=== PATIENT | male | born 1960 | race Caucasian/White ===

== ENCOUNTER → 2022-03-12 09:13 | Outpatient (CLI) | payer SELFPAY | PROVIDERS: Visit Provider Nurse Practitioner | DX: Z20.822 Contact with and (suspected) exposure to COVID-19 (principal) ==

== ENCOUNTER → 2022-03-18 17:31 | Outpatient (CLI) | payer SELFPAY | DX: Z20.822 Contact with and (suspected) exposure to COVID-19 (principal) ==

== ENCOUNTER → 2022-04-04 13:14 | Outpatient (CLI) | payer OTHER, SELFPAY ==
[2022-04-04 16:40] LABS: Influenza A, PCR Not Detected (NotDetected); Influenza B, PCR Not Detected (NotDetected)
[2022-04-04 18:48] LABS: Coronavirus 19, PCR Detected (NotDetected)
== END ==
PROVIDERS: PCP Family Medicine; Visit Provider Family Medicine
DX: U07.1 COVID-19 (principal)
CPT/HCPCS: C9803; U0003; U0005

== ENCOUNTER 2023-05-29 21:20 | Emergency (ER) | payer OTHER, SELFPAY ==
[2023-05-29] VITALS (12 sets, daily range): BP systolic 128–184; BP diastolic 61–92; PULSE 49–78; RESP 8–17; TEMP 36.4–36.8; O2SAT 98–100; BMI 25.0
--- NOTE | 2023-05-29 21:24 | CT_ITS ---
PROCEDURE INFORMATION: Exam: CT Head Without Contrast Exam date and time: 05/29/2023 9:52 PM Age: 63 years old Clinical indication: Pain; Headache; Additional info: Sudden onset headache TECHNIQUE: Imaging protocol: Computed tomography of the head without contrast. Radiation optimization: All CT scans at this facility use at least one of these dose optimization techniques: automated exposure control; mA and/or kV adjustment per patient size (includes targeted exams where dose is matched to clinical indication); or iterative reconstruction. REPORTING DATA: Count of CT and Cardiac NM exams in prior 12 months: This patient has received 0 known CTs and 0 known cardiac nuclear medicine studies in the 12 months prior to the current study. COMPARISON: No relevant prior studies available. FINDINGS: Brain: Abnormal hyperattenuating fluid within the basilar cisterns extends below the foramen magnum. Cerebral ventricles: No ventriculomegaly. Paranasal sinuses: Visualized sinuses are unremarkable. No fluid levels. Mastoid air cells: Visualized mastoid air cells are well aerated. Bones/joints: Unremarkable. No acute fracture. Soft tissues: Unremarkable. IMPRESSION: Abnormal hyperattenuating fluid within the basilar cisterns extends below the foramen magnum. THIS REPORT CONTAINS FINDINGS THAT MAY BE CRITICAL TO PATIENT CARE. The findings were verbally communicated via telephone conference with Stanislav Cheatham at 10:16 PM EDT on 05/29/2023. The findings were acknowledged and understood.
--- NOTE | 2023-05-29 21:35 | ECG_ITS ---
APPROVED REPORT Exam: Resting ECG HR:55 bpm ECG Measurements Heart Rate 55 AXES MS 245 P 75 QRSd 117 QRS 45 QT 463 T 65 QTc 453 Conclusion SINUS BRADYCARDIA WITH FIRST DEGREE AV BLOCK WITH OCCASIONAL SUPRAVENTRICULAR PREMATURE COMPLEXES INCOMPLETE RIGHT BUNDLE BRANCH BLOCK [90+ ms QRS DURATION, TERMINAL R IN V1/V2, 40+ ms S IN I/aVL/V4/V5/V6] ABNORMAL ECG UNCONFIRMED REPORT Electronically signed by : Wojciech Wadsworth MD 05/30/2023 19:24:41
[2023-05-29 21:43] LABS: Basophils % 0.4 % (0.1-2.0); Eosinophils # 0.1 K/mm3 (0.0-0.4); Eosinophils % 1.5 % (0.1-12.0); Hematocrit 42.6 % (42.0-52.0); Hemoglobin 14.6 g/dL (14.1-18.0); Lymphocytes # 2.1 K/mm3 (0.7-4.5); Lymphocytes % 26.1 % (10-50); Mean Corpuscular HGB Conc 34.2 g/dL (31.8-35.4); Mean Corpuscular Volume 90.6 fl (80-94); Mean Platelet Volume 7.7 fl (7.4-10.4); Monocytes # 0.4 K/mm3 (0.1-1.0); Monocytes % 5.3 % (1.7-9.3); Neutrophils # 5.3 K/mm3 (1.8-7.8); Neutrophils % 66.7 % (37.0-80.0); Platelet Count 237 K/mm3 (142-424); Red Blood Count 4.71 M/mm3 (4.60-6.20); Red Cell Distribution Width 13.7 % (11.5-17.5)
[2023-05-29 21:56] LABS: Alanine Aminotransferase 39 U/L (12-78); Albumin/Globulin Ratio 1.6 (1.1-1.8); Alkaline Phosphatase 55 U/L (38-126); Anion Gap 15.4 mEq/L (5-15); Aspartate Amino Transferase 52 U/L (17-59); Bilirubin,Total 0.4 mg/dl (0.2-1.3); Blood Urea Nitrogen 24 mg/dl (9-20); Calcium 9.4 mg/dl (8.4-10.2); Carbon Dioxide 28 mmol/L (22.0-30.0); Chloride 100 mmol/L (98-107); Creatinine Clearance Estimated 81 mL/min (50-200); Estimated Glomerular Filt Rate 67 ml/min (>60); GFR (African American) 82 ML/MIN (>60); Globulin 3.1 g/dL (1.3-3.2); Glucose 174 mg/dl (74-100); Potassium 3.4 mmoL/L (3.5-5.1); Sodium 140 mmol/L (136-145); Total Protein,Serum 8.1 g/dl (6.3-8.2)
--- NOTE | 2023-05-29 22:06 | CT_ITS ---
PROCEDURE INFORMATION: Exam: CTA Neck With Contrast Exam date and time: 05/29/2023 10:17 PM Age: 63 years old Clinical indication: Abnormal findings; Abnormal CT of the head; Additional info: Sah R/O aneurysm TECHNIQUE: Imaging protocol: Computed tomographic angiography of the neck with contrast. 3D rendering (Not supervised by radiologist): MIP and/or 3D reconstructed images were created by the technologist. Radiation optimization: All CT scans at this facility use at least one of these dose optimization techniques: automated exposure control; mA and/or kV adjustment per patient size (includes targeted exams where dose is matched to clinical indication); or iterative reconstruction. Contrast material: ISOVUE; Contrast volume: 100 ml; Contrast route: INTRAVENOUS (IV); REPORTING DATA: Count of CT and Cardiac NM exams in prior 12 months: This patient has received 0 known CTs and 0 known cardiac nuclear medicine studies in the 12 months prior to the current study. COMPARISON: CT HEAD/BRAIN WO CON 05/29/2023 9:52 PM FINDINGS: Right common carotid artery: No stenosis. No dissection or occlusion. Right internal carotid artery: No stenosis of the extracranial segment. Minimal atherosclerotic disease of the carotid bulb. No dissection or occlusion. Right external carotid artery: No occlusion or stenosis of the origin. Left common carotid artery: No stenosis. No dissection or occlusion. Please note a short-segment of the proximal left common carotid artery can not be visualized secondary to streak artifact from contrast in the left subclavian vein. Left internal carotid artery: No significant stenosis of the extracranial segment. Minimal atherosclerotic disease of the carotid bulb. No dissection or occlusion. Left external carotid artery: No occlusion or stenosis of the origin. Right vertebral artery: No stenosis. No dissection or occlusion. Left vertebral artery: No stenosis. No dissection or occlusion. Soft tissues: Normal. No significant soft tissue swelling. Bones/joints: No acute fracture. IMPRESSION: No stenosis or occlusion in the neck. REFERENCES: NASCET CRITERIA. The degree of stenosis in the cervical segment of the internal carotid artery is based on NASCET criteria. Normal is no stenosis. Mild is less than 50% stenosis. Moderate is 50-69% stenosis. Severe is 70% to 99% stenosis. Total occlusion is no detectable patent lumen.
--- NOTE | 2023-05-29 22:06 | CT_ITS ---
PROCEDURE INFORMATION: Exam: CTA Head With Contrast, Arteriography Exam date and time: 05/29/2023 10:17 PM Age: 63 years old Clinical indication: Abnormal findings; Abnormal CT of the head; Additional info: Sah R/O neurysn TECHNIQUE: Imaging protocol: Computed tomographic angiography of the head with contrast. Exam focused on the arteries. 3D rendering (Not supervised by radiologist): MIP and/or 3D reconstructed images were created by the technologist. Radiation optimization: All CT scans at this facility use at least one of these dose optimization techniques: automated exposure control; mA and/or kV adjustment per patient size (includes targeted exams where dose is matched to clinical indication); or iterative reconstruction. Contrast material: ISOVUE; Contrast volume: 100 ml; Contrast route: INTRAVENOUS (IV); REPORTING DATA: Count of CT and Cardiac NM exams in prior 12 months: This patient has received 0 known CTs and 0 known cardiac nuclear medicine studies in the 12 months prior to the current study. COMPARISON: CT HEAD/BRAIN WO CON 05/29/2023 9:52 PM FINDINGS: ANTERIOR CIRCULATION: Right internal carotid artery: Intracranial segment is patent with no significant stenosis. No aneurysm. Right middle cerebral artery: No occlusion or significant stenosis. No aneurysm. Right anterior cerebral artery: No occlusion or significant stenosis. No aneurysm. Left internal carotid artery: Intracranial segment is patent with no significant stenosis. No aneurysm. Left middle cerebral artery: No occlusion or significant stenosis. No aneurysm. Left anterior cerebral artery: No occlusion or significant stenosis. No aneurysm. POSTERIOR CIRCULATION: Right vertebral artery: No occlusion or significant stenosis. No aneurysm. Left vertebral artery: No occlusion or significant stenosis. No aneurysm. Basilar artery: No occlusion or significant stenosis. No aneurysm. Right posterior cerebral artery: No occlusion or significant stenosis. No aneurysm. Left posterior cerebral artery: No occlusion or significant stenosis. No aneurysm. Brain: Redemonstration of extensive subarachnoid hemorrhage within the basilar cisterns. Cerebral ventricles: Stable appearance of the ventricles Bones/joints: Unremarkable. No acute fracture. Soft tissues: Unremarkable. IMPRESSION: 1. No large vessel stenosis or occlusion. 2. Redemonstration of subarachnoid hemorrhage filling the basilar cisterns. No intracranial aneurysm.
--- NOTE | 2023-05-29 22:11 | PC.NURSE ---
Darrion BP 158/92 also provided 2 warm blanets, patient was being taken to CTA
--- NOTE | 2023-05-29 22:15 | PC.NURSE ---
contacted [facility] for pt transfer
--- NOTE | 2023-05-29 22:22 | PC.NURSE ---
received notification of abn head ct result. discussed with patient who prefers to talk with buddhist rather than uk.
--- NOTE | 2023-05-29 22:22 | PC.NURSE ---
pt back and in room from CT
--- NOTE | 2023-05-29 22:45 | PC.NURSE ---
Addendum entered by Juanis Ortiz RN 05/30/23 00:37: wilian geronimo incr to 10 per CHARI Merino. Physician at bedside placing radial arterial line. Patient tolerating well. Family notified of transfer via co-worker of patient. Original Note: increased to 10.0
--- NOTE | 2023-05-29 23:01 | PC.NURSE ---
left radial art line in place. bp 136/64 @ nicardipine gtt.
--- NOTE | 2023-05-29 23:12 | HMH.EDGENADL ---
Discharge Plan Disposition Patient Disposition: Xfer Short-Term Hosp Condition: Good Prescriptions Prescriptions: No Action No Known Home Medications Referrals Follow up/Referrals: Provider,Referral, MD [Primary Care Provider] - See instructions Clinical Impressions Clinical Impression: Subarachnoid hemorrhage Stand Alone Forms Stand Alone Forms: Transfer Record - ED Discharge ED Provider: Stanislav Cheatham General Adult HPI General Chief complaint: Headache Stated complaint: h/a, vomiting Time Seen by Provider: 05/29/23 21:23 Mode of Arrival: Ambulatory Source of Information: Patient Limitations: No Limitations Description of Symptoms (Recalled from ER Triage Doc. by RN): pt c/o KUMAR with sudden onset @ 6pm with vomitting and light sensivtie. History of Present Illness HPI narrative: 63-year-old male with no relevant medical history on daily baby aspirin presenting with headache. Started at 6 PM tonight, 05/29. Associated with photophobia, vomiting, diaphoresis, lightheadedness, but no episodes of syncope. Patient never had history of headaches in the past. Was not exerting himself when it started. Maximal intensity initially and has been 10 out of 10 in intensity since that time. Had friend bring him to the emergency department for further evaluation. Related Data Home Medications Medication Instructions Recorded Confirmed No Known Home Medications 05/29/23 05/29/23 Allergies Allergy/AdvReac Type Severity Reaction Status Date / Time No Known Allergies Allergy Unverified 04/04/22 13:53 [facility] Disclaimer: The information contained in this section may have been updated after the patient was seen, as this information can be updated by other users. Social History Smoking Status: Never smoker alcohol intake: never current occupational status: employed Travel in the last 8 weeks: None ROS Obtained: Yes All systems reviewed & no additional complaints except as documented Physical Exam General General appearance: alert and other (diaphoretic) Head Head exam: atraumatic and normocephalic Eye Eye exam: Present normal appearance, PERRL, EOMI and other (Photophobia) ENT ENT exam: Present mucous membranes moist Neck Neck exam: Present normal inspection, full ROM and trachea midline Respiratory Respiratory exam: Present normal lung sounds bilaterally; Absent respiratory distress, wheezes, stridor, accessory muscle use or prolonged expiratory phase Cardiovascular Cardiovascular exam: Present normal rhythm and bradycardia Abdominal Exam Abdominal exam: Present soft; Absent distention, tenderness, guarding, rebound, rigidity or normal bowel sounds Extremities Exam Extremities exam: Absent edema Neurological Exam Neurological exam: Present alert, oriented X3, CN II-XII intact and normal gait; Absent motor sensory deficit Skin Skin exam: Present warm, dry and diaphoresis; Absent erythema Medical Decision Making Medical Records Medical records reviewed: Yes I reviewed the patient's medical records. Bautista Inquiry Pt receiving controlled substance: No Bautista was queried for this patient: No Vital Signs: 05/29/23 21:21 05/29/23 22:19 Temperature 97.6 F 98.2 F Temperature Source Temporal Artery Scan Oral Pulse Rate 51 L Pulse Rate [Right] 51 L Respiratory Rate 14 16 Blood Pressure 158/92 H Blood Pressure [Right Arm] 184/87 H Blood Pressure Mean [Right Arm] 119 Blood Pressure Source Automatic Cuff Blood Pressure Position Sitting 02 Sat by Pulse Oximetry 100 Oxygen Delivery Method Room Air Lab Data Lab Results 05/29/23 21:34: WBC 8.0, RBC 4.71, Hgb 14.6, Hct 42.6, MCV 90.6, MCH 31.0, MCHC 34.2, RDW 13.7, Plt Count 237, MPV 7.7, Neut % (Auto) 66.7, Lymph % (Auto) 26.1, Dougherty % (Auto) 5.3, Eos % (Auto) 1.5, Baso % (Auto) 0.4, Neut # (Auto) 5.3, Lymph # (Auto) 2.1, Dougherty # (Auto) 0.4, Eos # (Auto) 0.1, Baso # (Auto) 0.0, Sodium 140, Potassium 3.4 L, Ch
--- NOTE | 2023-05-29 23:22 | PC.NURSE ---
faxed to [phone] copies of er discharge report,ct's
--- NOTE | 2023-05-29 23:25 | PC.NURSE ---
called and advised samir pascual of patient leaving hospital.
--- NOTE | 2023-05-29 23:28 | PC.NURSE ---
pt physically left building at this time.
[2023-05-29 23:30] LABS: Activated Partial Thrombo Time 23.7 seconds (22.8-30.6); Prothrombin Time 10.8 seconds (10.1-12.5)
== END 2023-05-29 23:28 | disposition short-term general hospital (02) ==
PROVIDERS: Emergency Provider Emergency Medicine
DX: I60.9 Nontraumatic subarachnoid hemorrhage, unspecified (principal); R11.2 Nausea with vomiting, unspecified; R94.31 Abnormal electrocardiogram [ECG] [EKG]; E87.6 Hypokalemia
CPT/HCPCS: 70450; 70496; 70498; 80053; 85025; 85610; 85730; 93005; 96361; 96374; 96375; 99291; J0131; J1953; Q9967

== ENCOUNTER 2024-08-28 18:06 | Outpatient (CLI) | payer OTHER, SELFPAY ==
[2024-08-28 19:12] LABS: Basophils % 0.5 % (0.1-2.0); Eosinophils # 0.2 K/mm3 (0.0-0.4); Eosinophils % 2.4 % (0.1-12.0); Hematocrit 46.4 % (42.0-52.0); Hemoglobin 14.8 g/dL (14.1-18.0); Mean Corpuscular HGB Conc 31.9 g/dL (31.8-35.4); Mean Corpuscular Hemoglobin 29.3 pg (27.0-31.2); Mean Corpuscular Volume 91.9 fl (80-94); Mean Platelet Volume 10.2 fl (7.4-10.4); Monocytes # 0.6 K/mm3 (0.1-1.0); Monocytes % 8.9 % (1.7-9.3); Neutrophils # 3.4 K/mm3 (1.8-7.8); Platelet Count 237 K/mm3 (142-424); Red Blood Count 5.05 M/mm3 (4.60-6.20); Red Cell Distribution Width 13.4 % (11.5-17.5); White Blood Count 6.2 K/mm3 (4.8-10.8)
[2024-08-28 19:24] LABS: Alanine Aminotransferase 34 U/L (12-78); Albumin Level 5.2 g/dl (3.5-5.0); Albumin/Globulin Ratio 2.5 (1.1-1.8); Alkaline Phosphatase 61 U/L (38-126); Aspartate Amino Transferase 36 U/L (17-59); Bilirubin,Total 0.6 mg/dl (0.2-1.3); Blood Urea Nitrogen 21 mg/dl (9-20); Calcium 9.9 mg/dl (8.4-10.2); Carbon Dioxide 26 mmol/L (22.0-30.0); Chloride 101 mmol/L (98-107); Chol/HDL Ratio 4.2 (1-3.5); Cholesterol 169 mg/dl (140-200); Estimated Glomerular Filt Rate 61 ml/min (>60); GFR (African American) 74 ML/MIN (>60); Globulin 2.1 g/dL (1.3-3.2); Glucose 54 mg/dl (74-100); HDL Cholesterol 40 mg/dl (40-60); Sodium 139 mmol/L (136-145); Total Protein,Serum 7.3 g/dl (6.3-8.2); Triglycerides 139 mg/dl (30-150); VLDL Cholesterol 28 mg/dL (0-40)
[2024-08-28 19:41] LABS: 25-OH Vitamin D, Total 46.5 ng/mL (30-100)
[2024-08-28 20:04] LABS: Direct LDL Cholesterol 95.97 mg/dL (100-129); Prostate Specific Ag, Diagnost 1.01 ng/ml (0.0-4.0); T4 (Thyroxine) 7.2 ug/dl (5.53-11.0); Thyroid Stimulating Hormone 3.59 uIU/mL (0.465-4.68)
[2024-08-28 20:13] LABS: Hemoglobin A1C 5.7 % (4.0-6.0)
[2024-08-28 20:44] LABS: Anion Gap 16.5 mEq/L (5-15); Potassium 4.5 mmoL/L (3.5-5.1)
[2024-08-30 09:11] LABS: Testosterone,Total 317 ng/dL (264-916)
== END 2024-08-28 23:59 | disposition home or self-care (01) ==
LOC: LAB.DROPOF 18:09
PROVIDERS: PCP Nurse Practitioner Family; Visit Provider Nurse Practitioner Family
DX: R53.83 Other fatigue (principal)
CPT/HCPCS: 80053; 80061; 82306; 83036; 84153; 84403; 84436; 84443; 85025

== ENCOUNTER 2025-02-26 16:36 | Outpatient (CLI) | payer OTHER, SELFPAY ==
[2025-02-26 17:33] LABS: Hematocrit 44.4 % (42.0-52.0); Hemoglobin 14.5 g/dL (14.1-18.0); Immature Granulocytes % 0.2 %; Mean Corpuscular HGB Conc 32.7 g/dL (31.8-35.4); Mean Corpuscular Hemoglobin 29.9 pg (27.0-31.2); Mean Corpuscular Volume 91.5 fl (80-94); Nucleated Red Blood Cells % 0 %; Platelet Count 212 K/mm3 (142-424); Red Blood Count 4.85 M/mm3 (4.60-6.20); Red Cell Distribution Width-SD 45.7 fL; White Blood Count 4.9 K/mm3 (4.8-10.8)
[2025-02-26 18:26] LABS: Anion Gap 15.5 mEq/L (5-15); Blood Urea Nitrogen 21 mg/dl (9-20); Calcium 10.2 mg/dl (8.4-10.2); Carbon Dioxide 29 mmol/L (22.0-30.0); Chloride 101 mmol/L (98-107); Creatinine,Serum 1.20 mg/dl (0.66-1.25); Estimated Glomerular Filt Rate 61 ml/min (>60); GFR (African American) 74 ML/MIN (>60); Glucose 51 mg/dl (74-100); Potassium 4.5 mmoL/L (3.5-5.1); Sodium 141 mmol/L (136-145)
== END 2025-02-26 23:59 | disposition home or self-care (01) ==
LOC: LAB.DROPOF 16:38
PROVIDERS: Visit Provider Surgery
DX: Z01.812 Encounter for preprocedural laboratory examination (principal)
CPT/HCPCS: 80048; 85025

== ENCOUNTER 2025-06-17 16:42 | Outpatient (CLI) | payer OTHER, SELFPAY ==
--- NOTE | 2025-06-17 16:44 | XR_ITS ---
PROCEDURE INFORMATION: Exam: XR Chest Exam date and time: 06/17/2025 4:42 PM Age: 65 years old Clinical indication: Cough TECHNIQUE: Imaging protocol: Radiologic exam of the chest. Views: 2 views. COMPARISON: CR XR CHEST 2V 06/17/2025 4:42 PM FINDINGS: Lungs: Unremarkable. No consolidation. Pleural spaces: Unremarkable. No pleural effusion. No pneumothorax. Heart/Mediastinum: Unremarkable. No cardiomegaly. Bones/joints: Unremarkable. IMPRESSION: No acute findings.
--- NOTE | 2025-06-17 16:44 | XR_ITS ---
PROCEDURE INFORMATION: Exam: XR Cervical Spine Exam date and time: 06/17/2025 4:44 PM Age: 65 years old Clinical indication: Neck pain TECHNIQUE: Imaging protocol: Radiologic exam of the cervical spine. Views: 2 or 3 views. COMPARISON: CT ANGIO NECK 05/29/2023 10:17 PM FINDINGS: Bones/joints: Disc space narrowing C6-C7. Mild disc space narrowing C5-C6. No acute fracture. Normal alignment. Soft tissues: Unremarkable. IMPRESSION: No acute findings.
--- OUTSIDE RECORDS SUMMARY | 2025-06-17 16:46 | XMS_ITS | Clinical Summary ---
Author Organization [facility] Address [address] [place] [address] Care Team Providers Care Master Automotive Glass Technician Name Role Phone Sharonda Tellez Primary Care Provider + Allergies No known active allergies Medications No known medications Active Problems Problem Noted Date Diagnosed Date BMI 26.0-26.9,adult 01/04/2024 Prediabetes 01/04/2024 Assessment & Plan (01/04/2024 8:33 AM EDT): A1c improved today to 5.4. Continue lifestyle modification and we will recheck in 12 months. Snoring 01/04/2024 Assessment & Plan (01/04/2024 8:36 AM EDT): STOP-BANG completed, 4 point scored intermediate risk for sleep apnea. Potentially causing symptoms. Will refer to sleep medicine for a thorough evaluation Parasomnia 01/04/2024 Assessment & Plan (01/04/2024 8:37 AM EDT): Referral to sleep medicine today Bradycardia 06/07/2023 Assessment & Plan (07/18/2023 4:15 PM EST): Asymptomatic. Patient is pending follow-up with cardiology, plans to reschedule this when available. Bundle branch block 06/07/2023 Subarachnoid hemorrhage 05/30/2023 SAH (subarachnoid hemorrhage) 05/30/2023 Assessment & Plan (07/18/2023 4:18 PM EST): Overall doing well today. No acute deficits. Patient followed up with neurology, has a scheduled follow-up in September for repeat CTA and evaluation. Patient was weaned off Keppra. He is currently not on any medications. Will continue monitoring at this time and patient to reach out if any new symptoms were to develop. Resolved Problems Problem Noted Date Diagnosed Date Resolved Date Screening PSA (prostate specific antigen) 07/18/2023 01/04/2024 Assessment & Plan (07/18/2023 4:14 PM EST): Will obtain screening labs today. Immunizations Immunization Administration Dates Next Due Flu Vaccine Quad PF 6-35MO 06/20/2019,06/06/2018 Fluzone (or Fluarix & Flulaval for VFC) >6mos Influenza, Unspecified 06/18/2020 PPD Test 09/08/2020 Family History Medical History Relation Name Comments COPD Father Christopher Moon Pulmo nary Fibrosis Heart disease Father Christopher Moon CABG 4V 1989 Diabetes Mother Subha Moon DM2 Hearing loss Mother Subha Moon Hyperlipidemia Mother Subha Ordaz ll Hypertension Mother Subha Moon Vision loss Mother Subha Moon Macular Degeneration Relation Name Status Comments Father Christopher Moon Mother Subha Moon Social History Tobacco Use Types Packs/Day Years Used Date Smoking Tobacco: Never Passive Smoke Exposure: Never Smokeless Tobacco: Never Tobacco Cessation:Counseling Given: Not Answered Alcohol Use Standard Drinks/Week Comments Not Currently 0 (1 standard drink = 0.6 oz pur e alcohol) [facility] Utilities Answer Date Recorded In the past 12 months has [employer], gas, oil, or water [employer] threatened to shut off services in your home? No 05/30/2023 AUDIT-C Answer Date Recorded Q1: How often do you have a drink containing alc ohol? Monthly or less 05/30/2023 Q2: How many drinks containi ng alcohol do you have on a typical day when you are drinking? 1 or 2 05/30/2023 Q3: How often do you have si x or more drinks on one occasion? Less than monthly 05/30/2023 PHQ-2 Answer Date Recorded Retired PHQ-9: Brief Depression Severity Measure Score 0 07/18/2023 Exercise Vital Sign Answer Date Recorde d On average, how many days pe r week do you engage in moderate to strenuous exercise (like a brisk walk)? 5 days 05/30/2023 On average, how many minutes do you engage in exercise at this level? 60 min 05/30/2023 Abuse Screen Answer Date Recorded Unsafe at Home or Work/School Not on file Feels Threatened by Someone? Not on file Does Anyone Keep You from Co ntacting Others or Doint Things Outside the Home? Not on file 05/30/2023 Physical Signs of Abuse Present no 05/30/2023 Housing Stability Answer Date Recorded Current Living Arrangements home 05/14 Potentially Unsafe Housing Conditions unable to assess 05/30/2023 Family and Community Support Answer [place] e Recorded Help with Day-to-Day Activities Not on file 05/22/2023 Lonely or Isolated Not on file 05/22/2023 Employment Answer Date Recorded Do you want help finding or keeping work or a brandi b? Not on file 05/22/2023 Disabilities Answer Date Recorded Difficulty Concentrating, Remembering or Making Decisions no 05/30/2023 Difficulty Managing Errands Independently no 05/30/2023 Education Answer Date Recorded Help with school or training? Not on file Preferred Language Peruvian 05/30/2023 PHQ-2 Answer Date Recorded Retired PHQ-9: Brief Depression Severity Measure Score 0 07/18/2023 Sex and Gender Information Value Date Recorded Sex Assigned at Not on file Legal Sex Male 10:38 AM EDT Gender Identity Not on file Sexual Orientation Not on file Last Filed Vital Signs Vital Sign Reading Time Taken Comments Blood Pressure 128/70 04/05/2024 8:34 AM EDT Pulse 51 04/05/2024 8:34 AM EDT Temperature 35.9 C (96.6 F) 04/05/2024 8:34 AM EDT Respiratory Rate 16 06/19/2023 2:31 PM EST Oxygen Saturation 98% 04/05/2024 8:34 AM EDT Inhaled Oxygen Concentration - - Weight 88.5 kg (195 lb 3.2 oz) 04/05/2024 8:34 A M EDT Height 185.4 cm (6' 0.99 ) 04/05/2024 8:34 AM ED T Body Mass Index 25.76 04/05/2024 8:34 AM EDT Plan of Treatment Health Maintenance Due Date Last Done Comments TDAP/TD VACCINES (1 - Tdap) 1978 COLON CANCER SCREENING 5 YEA R SIGMOIDOSCOPY [address] COLONOGRAPHY 2004 FECAL OCCULT BLOOD TEST 2004 FIT Testing (1 year) 2004 Pneumococcal Vaccine 50+ (1 of 1 - PCV) 2009 ZOSTER VACCINE (1 of 2) 2009 ANNUAL PHYSICAL 06/09/2023 HEPATITIS C SCREENING 06/09/2023 AAA SCREEN ONCE 2024 INFLUENZA VACCINE 03/14/2025 05/27/2021, , 06/20/2019, Additional history exists COVID-19 Vaccine (1 - 2023-2 5 season) 2025 COLOGUARD 08/30/2026 08/30/2023 COLORECTAL CANCER SCREENING 08/30/2026 Medical Devices Implanted Type Area Campaign Advisor Device Identifier Shelf Expiration Date Model / Serial / Lot Cath Csf Ext Edm Lumb W/Ba 80cm - [id number] Implanted:Qty: 1 on 05/30/2023 by Douglas Carnes MD at [facility] Implant [employer] 02/24/2027 [id number] / / [id number] Procedures Procedure Name Priority Date/Time Associated Diagnosis Comments COLOGUARD Routine 08/30/2023 7:30 AM EST Colon cancer screening from Last 3 Months or Most Recently Relevant to Health Maintenance Results * Cologuard - Stool, Per Rectum (08/30/2023 7:30 AM EST) Cologuard Negative Negative 09/07/2023 6:45 PM EST [employer] (CLIA #:[id number]) Comment: NEGATIVE TEST RESULT. A negative Cologuard result indicates a low likelihood that a colorectal cancer (CRC) or advanced adenoma (adenomatous polyps with more advanced pre-malignant features) is present. The chance that a person with a negative Cologuard test has a colorectal cancer is less than 1 in 1500 (negative predictive value >99.9%) or has an advanced adenoma is less than 5.3% (negative predictive value 94.7%). These data are based on a prospective cross-sectional study of 10,000 individuals at average risk for colorectal cancer who were screened with both Cologuard and colonoscopy. (Jovanny Tavera et al, N Engl J Med 2014;370(14):0483-1542) The normal value (reference range) for this assay is negative. COLOGUARD RE-SCREENING RECOMMENDATION: Periodic colorectal cancer screening is an important part of preventive healthcare for asymptomatic individuals at average risk for colorectal cancer. Following a negative Cologuard result, the [place] Cancer Society and U.S. Multi-Society Task Force screening guidelines recommend a Cologuard re-screening interval of 3 years. References: [place] [employer] Society Guideline for Colorectal Cancer Screening: https://www.cancer.org/cancer/wnvxp-bhttgx-npvzkq/uiegzntvz-wbkmgksxw-lnrexbz/ac s-rec ommendations.html.; Remi DK, Sara DOLAN, Usha StevensK, Colorectal Cancer Screening: Recommendations for Physicians and Patients from the U.S. Multi-Society Task Force on Colorectal Cancer Screening , Am J Gastroenterology 2017; 112:5182-8512. TEST DESCRIPTION: Composite algorithmic analysis of stool DNA-biomarkers with hemoglobin immunoassay. Quantitative values of individual biomarkers are not reportable and are not associated with individual biomarker result reference ranges. Cologuard is intended for colorectal cancer screening of adults of either sex, 45 years or older, who are at average-risk for colorectal cancer (CRC). Cologuard has been approved for use by the U.S. FDA. The performance of Cologuard was established in a cross sectional study of average-risk adults aged 50-84. Cologuard performance in patients ages 45 to 49 years was estimated by sub-group analysis of near-age groups. Colonoscopies performed for a positive result may find as the most clinically significant lesion: colorectal cancer [4.0%], advanced adenoma (including sessile serrated polyps greater than or equal to 1cm diameter) [20%] or non- advanced adenoma [31%]; or no colorectal neoplasia [45%]. These estimates are derived from a prospective cross-sectional screening study of 10,000 individuals at average risk for colorectal cancer who were screened with both Cologuard and colonoscopy. (Jovanny Rossi al, N Engl J Med 2014;370(14):5296-0194.) Cologuard may produce a false negative or false positive result (no colorectal cancer or precancerous polyp present at colonoscopy follow up). A negative Cologuard test result does not guarantee the absence of CRC or advanced adenoma (pre-cancer). The current Cologuard screening interval is every 3 years. ([place] Cancer Society and U.S. Multi-Society Task Force). Cologuard performance data in a 10,000 patient pivotal study using colonoscopy as the reference method can be accessed at the following location: www.Modti/results. Additional description of the Cologuard test process, warnings and precautions can be found at www.M2TECHrd.Aristotl. Stool specimen (specimen) Specimen from rectum / Unknown 08/30/2023 7:30 AM EST 08/31/2023 2:10 PM EST us Sharonda Tellez DO BODY FLUIDS AND STOOLS O RDERABLES Final Result [employer] (CLIA #:[id number]) [address] [place] [address], from Last 3 Months or Most Recently Relevant to Health Maintenance Insurance UMR Advance Directives * CPR (Attempt to Resuscitate) (Latest Code Status on File) Date Activated Date Inactivated Comments 06/04/2023 9:08 AM 06/07/2023 5:42 PM Question Answer Comments Code Status (Patient has no pulse and is not breathing): CPR (Attempt to Resuscitate) Medical Interventions (Patie nt has pulse or is breathing): Full Support Level Of Support Discussed With: Patient Care Teams Master Automotive Glass Technician Relationship Specialty Start Date End Date Sharonda Tellez DO [address] [place] [address] PCP - General Family Medicine 06/07/23
--- OUTSIDE RECORDS SUMMARY | 2025-06-17 16:46 | XMS_ITS | Clinical Summary ---
Author Organization [facility] Address [address] [place] [address] Care Team Providers Care Reading Recovery Teacher Name Role Phone None, Physician Primary Care Provider Unavailabl e Allergies No known active allergies Medications No known medications Active Problems No known active problems Immunizations Immunization Administration Dates Next Due Influenza Vaccine Quadrivalent Pf 05/27/2021 Influenza, Unspecified 05/27/2021 Social History Tobacco Use Types Packs/Day Years Used Date Smoking Tobacco: Never Smokeless Tobacco: Never Alcohol Use Standard Drinks/Week Comments Never 0 (1 standard drink = 0.6 oz pur e alcohol) Sex and Gender Information Value Date Recorded Sex Assigned at Not on file Legal Sex Male 1:12 PM EDT Gender Identity Not on file Sexual Orientation Not on file Last Filed Vital Signs Vital Sign Reading Time Taken Comments Blood Pressure 119/73 08/03/2021 12:16 PM EST Pulse 62 08/03/2021 12:16 PM EST Temperature 36.9 C (98.5 F) 08/03/2021 12:16 PM EST Respiratory Rate - - Oxygen Saturation 99% 08/03/2021 12:16 PM EST Inhaled Oxygen Concentration - - Weight 86.2 kg (190 lb) 08/03/2021 12:16 PM EST Height 185.4 cm (6' 1 ) 08/03/2021 12:16 PM EST Body Mass Index 25.07 08/03/2021 12:16 PM EST Plan of Treatment Health Maintenance Due Date Last Done Comments CT Colonography 1959 Colonoscopy 1959 Colorectal Cancer Screening 1959 FIT-DNA 1959 FIT 1959 FOBT 1959 Hepatitis C Screening 1959 Sigmoidoscopy 1959 Tdap/Td Vaccine >11 yo (1 - Tdap) 1978 Pneumococcal Vaccines >50 yo (1 of 1 - PCV) 2009 Shingles (Shingrix) (1 of 2) 2009 Abdominal Aortic Aneurysm (AAA) Screen 2024 Annual SDOH Screening 08/14/2024 Influenza Vaccine (#1) 2025 , 05/27/2021 RSV 50+ and (1 - 1-dose 75+ series) 2034 Haemophilus Influenzae Type B (Hib) Vaccine Aged Out No longer eligible b ased on patient's age to complete this topic Hepatitis A (HepA) Vaccine Aged Out N o longer eligible based on patient's age to complete this topic Hepatitis B (HepB) Vaccine Aged Out N o longer eligible based on patient's age to complete this topic Meningococcal ACWY Aged Out No longer eligible based on patient's age to complete this topic Polio (IPV) Aged Out No longer eligi ble based on patient's age to complete this topic Rotavirus (RV) Vaccine Aged Out No lo nger eligible based on patient's age to complete this topic Insurance [employer] Care Teams Reading Recovery Teacher Relationship Specialty Start Date End Date None, Physician PCP - General 05/24/21
== END 2025-06-17 23:59 | disposition home or self-care (01) ==
LOC: RAD 16:44
PROVIDERS: Visit Provider Nurse Practitioner Family
DX: M54.2 Cervicalgia (principal); R05.9 Cough, unspecified
CPT/HCPCS: 71046; 72040